=== PATIENT | female | born 2000 | race Caucasian/White ===

== ENCOUNTER 2022-06-20 15:15 | Emergency (ER) | payer BC, SELFPAY ==
--- NOTE | ~2022-06-20 | XR_ITS ---
EXAMINATION: XR foot RT min 3V, XR ankle RT 2V CLINICAL INFORMATION: Rolled ankle with foot and ankle pain COMPARISON: None. TECHNIQUE: AP and oblique views right ankle; 3 views right foot FINDINGS: Right ankle: No acute fracture or dislocation. Ankle mortise is congruent and intact. Possible ankle joint effusion as seen on the lateral view of the foot. Soft tissue swelling overlying the lateral malleolus. Ankle and subtalar joint spaces are maintained. Right foot: No acute fracture or dislocation. Mild hallux valgus deformity suspected. Bipartite tibial hallux sesamoid. Joint spaces throughout the foot are maintained. Os naviculare seen. Normal alignment at the Lisfranc joint. XR/XR foot RT min 3V IMPRESSION: 1. No acute fracture or dislocation identified at the ankle or foot. 2. Soft tissue swelling overlying the lateral malleolus and possible ankle joint effusion.
--- NOTE | ~2022-06-20 | XR_ITS ---
EXAMINATION: XR foot RT min 3V, XR ankle RT 2V CLINICAL INFORMATION: Rolled ankle with foot and ankle pain COMPARISON: None. TECHNIQUE: AP and oblique views right ankle; 3 views right foot FINDINGS: Right ankle: No acute fracture or dislocation. Ankle mortise is congruent and intact. Possible ankle joint effusion as seen on the lateral view of the foot. Soft tissue swelling overlying the lateral malleolus. Ankle and subtalar joint spaces are maintained. Right foot: No acute fracture or dislocation. Mild hallux valgus deformity suspected. Bipartite tibial hallux sesamoid. Joint spaces throughout the foot are maintained. Os naviculare seen. Normal alignment at the Lisfranc joint. XR/XR ankle RT 2V IMPRESSION: 1. No acute fracture or dislocation identified at the ankle or foot. 2. Soft tissue swelling overlying the lateral malleolus and possible ankle joint effusion.
[2022-06-20 15:17] VITALS: BP 139/64; PULSE 97; RESP 18; TEMP 36.6; O2SAT 100; BMI 21.4
--- NOTE | 2022-06-20 15:19 | ED_ITS ---
HPI - Extremity Injury (Lower) General Chief Complaint: Extremity Injury, Lower Stated Complaint: right ankle Time Seen by Provider: 06/20/22 15:27 Source: patient Mode of arrival: ambulatory History of Present Illness HPI Narrative: 21-year-old female with no significant past medical history presenting to the ED complaining of right ankle/foot pain and swelling s/p rolling ankle last night while running. Denies head trauma or LOC. Reports mild paresthesias. States went to ?Provider prior to arrival that reset ankle. Has been minimally ambulatory since the incident MD complaint: ankle injury and foot injury Onset (ago): hour(s) Related Data Allergies Allergy/AdvReac Type Severity Reaction Status Date / Time No Known Allergies Allergy Verified 06/20/22 15:23 Review of Systems Review of Systems: Constitutional: No Fever, No Chills ENT/Mouth: No Ear Pain, No Nasal Congestion, No Swallowing Difficulty Cardiovascular: No Chest Pain, No SOB Respiratory: No Cough, No Sputum, No Wheezing Gastrointestinal: No Nausea, No Vomiting, No Diarrhea, No Constipation, No Abdominal pain Genitourinary: No Dysuria, No Urinary Frequency, No Urgency, No Flank Pain Musculoskeletal: + joint pain, No Myalgias, + Joint Swelling Skin: No Skin Lesions, No rash Neuro: No Weakness, No Numbness, + Paresthesias Yes all other systems are reviewed and are negative Constitutional: Constitutional: Reports as per [facility] Past Medical History Attestation statement: The following information was validated with the patient. Social History Social History Advance Directives: No Physical Exam Vital Signs: Vital Signs: Last Vital Signs Temp 97.9 F 06/20/22 15:17 Pulse 97 06/20/22 15:17 Resp 18 06/20/22 15:17 BP 139/64 06/20/22 15:17 Pulse Ox 100 06/20/22 15:17 O2 Del Method 06/20/22 15:17 BMI result Body Mass Index 21.4 Const: General: cooperative, healthy appearing and no acute distress Orientation/consciousness: patient oriented x3 Limitations: no limitations HEENT: Head: Yes normal to inspection and Yes atraumatic Ears: hearing grossly normal bilaterally General nose exam: Normal external nose present Face and sinus: Yes normal facial exam Eyes: General: appearance normal, both eyes and all related structures EOM: EOMs intact bilaterally Neck: Neck: Yes normal visual inspection and Yes no meningeal signs Resp: Effort & Inspection: normal respiratory effort and no respiratory distress Cardio: Rate: regular rate Skin: Rashes: no rashes Wounds: no wounds Neuro: General: patient oriented x3, tone normal and no meningeal signs Gait exam (Neuro): Normal gait present Extrem: Other: right ankle/foot with noted swelling and ecchymosis to lateral aspect. +ttp to lateral malleolus. NV intact R knee/tib/fib nontender Course Course Course Narrative: XR ankle RT 2VXR foot RT min 3V IMPRESSION: 1.? No acute fracture or dislocation identified at the ankle or foot. 2.? Soft tissue swelling overlying the lateral malleolus and possible ankle joint effusion. >> patient placed in air cast and supplied with crutches Results discussed with patient including worrisome signs and symptoms and strict return precautions, and when to return to the emergency department. They verbalized understanding and feel safe for discharge at this time. Medical Decision Making Medical Decision Making MDM Narrative: 21-year-old female with no significant past medical history presenting to the ED complaining of right ankle/foot pain and swelling s/p rolling ankle last night while running. On exam vital signs stable, NAD, nontoxic appearing, physical exam as above. Concern for sprain versus fracture. No evidence of cellulitis, low suspicion for septic joint/arthritis Plan: X-rays Please refer to course for remaining clinical decision making, interpretation of labs/imaging results, and discussions with consultants and/or family members. Differential Diagnosis Differential Diagnoses: The differential diagnosis associated with the presentation includes As above Independent Interpretation I performed an independent interpretation of an: Plain X-Ray Radiology Impression Discussion of test interpretation with radiology: I have reviewed the rad iologist's reading. Prescription Management I considered prescription management with: Pain Medication Procedures Orthopedic Splinting/Casting Injury #1: Side: right Lower Extremity Injury Location: ankle and foot Lower Extremity Immobilizer: AirCast Other Orthopedic Equipment: crutches Discharge Plan Discharge Clinical Impression: Ankle sprain and strain Patient Disposition: Home, Self-Care Instructions: Ankle Sprain (ED) Additional Instructions: Your x-ray does not show fracture, you do have soft tissue swelling. you sprained her ankle Wear Aircast as needed for comfort and stability. Use crutches. You may bear weight as tolerated. Ice and elevate. Take Tylenol and Motrin as needed If symptoms persist or worsen/become unbearable return to the emergency department Follow-up with her doctor Referrals: PhysicianGabby [Primary Care Provider] - 1 week Interventions: ED Discharge Assessment Last Done: 06/20/22 16:44 Discharge Date/Time: 06/20/22 16:49
== END 2022-06-20 16:49 | disposition home or self-care (01) ==
PROVIDERS: Emergency Provider Emergency Medicine
DX: S93.401A Sprain of unspecified ligament of right ankle, initial encounter (principal); S96.911A Strain of unspecified muscle and tendon at ankle and foot level, right foot, initial encounter; X50.1XXA Overexertion from prolonged static or awkward postures, initial encounter; Y93.02 Activity, running; Y92.410 Unspecified street and highway as the place of occurrence of the external cause; Y99.9 Unspecified external cause status
CPT/HCPCS: 73600; 73630; 99283